=== PATIENT | female | born 1965 | race Hispanic/Latino ===

== ENCOUNTER 2020-08-11 18:00 | Emergency (ER) | payer MEDICARE ==
[~2020-08-11] VITALS: Ht 160 cm; Wt 60.8 kg
[~2020-08-11 18:00] MED LIST: CELECOXIB PO; REMERON PO; [UNRECOGNIZED DRUG - OTHER] PO; [UNRECOGNIZED DRUG - REMARK] PO
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
--- NOTE | 2020-08-11 19:39 | Diagnostic Imaging Report ---
EXAMINATION: Head CT without contrast. HISTORY:History of slip and fall in bathtub, complains of headache. COMPARISON:None. TECHNIQUE: Multidetector axial images were obtained from the foramen magnum to the vertex without contrast. The images were reconstructed using brain and bone algorithms. Thin section brain images were reformatted into coronal and sagittal planes. Dose modulation, iterative reconstruction, and/or weight based adjustment of the mA/kV was utilized to reduce the radiation dose to as low as reasonably achievable. Intravenous contrast: None IMAGE QUALITY: Acceptable. FINDINGS: Skull/scalp: No lytic or blastic. lesions. No surgical changes. Parenchyma: No nonspecific few, scattered supratentorial white matter hypodensity are likely related to small vessel ischemic changes. No acute hemorrhage, mass or acute major vascular territorial infarct. Arteries: No density suggestive of thrombosis. Dural sinuses: No abnormal density suggestive of thrombosis. Ventricles: No hydrocephalus or displacement. Extra-axial spaces: No abnormal density. Brain volume: Normal for age. Craniocervical junction: No mass, Chiari malformation, or basilar invagination. Sella: No mass. Paranasal/mastoid sinuses: Imaged portions unremarkable. IMPRESSION: No acute posttraumatic intracranial abnormality. Signed by: Dr. Elena Pacheco M.D. on 08/11/2020 7:35 PM
--- NOTE | 2020-08-11 19:46 | Diagnostic Imaging Report ---
History: Status post slip and fall in the bathtub. Comparison studies: None Technique: Axial images were obtained through the cervical region.. Coronal and sagittal images reconstructed from the axial data. Dose modulation, iterative reconstruction, and/or weight based adjustment of the mA/kV was utilized to reduce the radiation dose to as low as reasonably achievable. Intravenous contrast: None Findings: Fractures: None. Soft tissue injuries: None. Atlantoaxial articulation: Intact. Alignment: Reversal of normal cervical lordosis may be positional or due to muscle spasm. 2 mm grade 1 anterolisthesis at C3-C4. No scoliosis. Cervicomedullary junction: No abnormalities. The foramen magnum is patent. Soft tissues: No abnormalities. Vertebrae: No fractures, infection or neoplasm. Degenerative changes: C4-C5: Mild right foraminal stenosis due to facet and uncovertebral arthrosis. C5-C6: Moderate degenerative disc disease. Posterior disc osteophyte complex asymmetric to left results in mild canal stenosis. Moderate right and mild left foraminal stenosis due to facet and uncovertebral arthrosis. Incidental finding: A 1.3 cm calcified lesion in right submandibular space may represent sialolith with asymmetric atrophy of right submandibular gland. IMPRESSION: 1. No acute cervical spine fracture or dislocation. Reversal of normal cervical lordosis is either positional or due to muscle spasm. 2. Grade 1 anterolisthesis at C3-C4. 3. Ligament, spinal cord and or vascular abnormalities cannot be excluded on the basis of this examination. 4. Mild cervical spondylosis as detailed above. Signed by: Dr. Elena Pacheco M.D. on 08/11/2020 7:43 PM
[2020-08-11] MEDS ORDERED: ACETAMINOPHEN 325 MG TAB PO STA (20:20)
--- OUTSIDE RECORDS SUMMARY | 2020-08-13 16:25 | XMS REPORT | Continuity of Care Document ---
Author Author [facility] t Organization [facility] Address [address] [place] [address] Phone Unavailable Care Team Providers Care Cutting Supervisor Name Role Phone MD SONG KHAN PCP VANESSA HU Attphys Antonieta Tavarez MD Attphys Payers Payer Name Policy Type Policy Number Effective Date Expiration Date [facility] [id number] [facility] Problems Condition Name Condition Details Condition Category Status Onset Date Resolution Date Last Treatment Date Treating Clinician Comments Source Injury of head Problem Active [facility] Allergies, Adverse Reactions, Alerts Allergy Name Allergy Type Status Severity Reaction(s) Onset Date Inacti ve Date Treating Clinician Comments Source Sulfa (Sulfonamide Antibiotics) Allergy to substance Active Sever e 2020-08-11 00:00:00 [facility] Sulfa (Sulfonamide Antibiotics) DA Active U 2018-08-13 00 :00:00 [facility] Sulfa (Sulfonamide Antibiotics) DA Active U 2016-07-23 00 :00:00 [facility] Social History Social Habit Start Date Stop Date Quantity Comments Source Sex Assigned At 1965 00:00:00 1965 00:00:[address] [facility] Medications Ordered Medication Name Filled Medication Name Start Date Stop Da te Current Medication? Ordering Clinician Indication Dosage Frequency Signature (SIG) Comments Components Source Celebrex Generic Celebrex Generic Yes Daily [facility] Remeron Remeron Yes [address] [facility] Unknown Anxiety Pill Unknown Anxiety Pill Yes [address] [facility] Yes As Nee ded [facility] Vital Signs Vital Name Observation Time Observation Value Comments Source Weight 2020-08-11 18:19:00 134 [lb_av] [facility] BMI (Body Mass Index) 2020-08-11 18:19:00 23.7 kg/m2 [facility] Procedures Procedure Date / Time Performed Performing Clinician Sour e Computed tomography of brain without radiopaque contrast 2020-07 00:00:00 [facility] Computed tomography of cervical spine without contrast 2020-07-19 5 00:00:00 [facility] Plan of Care Planned Activity Planned Date Details Comments Source Instructions Concussion/Head Injury - Adult [facility] Encounters Start Date/Time End Date/Time Encounter Type Admission Type Att[facility] Care Department Encounter ID Source 2019-09-08 08:43:05 Outpatient [id number] [facility] 2020-08-11 18:47:00 2020-08-11 20:42:00 Departed Emergency Room VANESSA HU [facility] [id number] [facility] 2020-08-02 00:00:00 2020-08-02 00:00:00 Telephone Wagner Brewer [facility] [id number] 2020-07-25 00:00:00 2020-07-25 00:00:00 Telephone Wagner Brewer [facility] [id number] 2020-06-14 11:10:11 2020-06-14 12:29:02 Office Visit Wagner Vogt [facility] [id number] 2019-10-26 12:57:00 2019-10-26 12:57:00 Outpatient [id number] [facility] Results Test Description Test Time Test Comments Results Result Comments Source CT CERVICAL SPINE WO 2020-08-11 19:35:00 [facility] [address] [place] [address] Patient Name: FRAN PIZARRO MR #: [id number] : 1965 Age/Sex: 54/F Req #: [id number] Adm Physician: Ordered by: VANESSA HU DO Report #: [id number] Location: ER Room/Bed: Procedure: [id number] CT/CT CERVICAL SPINE WO Exam Date: 08/11/20 Exam Time: 1900 REPORT STATUS: Signed History: Status post slip and fall in the bathtub. Comparison studies: None Technique: Axial images were obtained through the cervical region.. Coronal and sagittal images reconstructed from the axial data. Dose modulation, iterative reconstruction, and/or weight based adjustment of the mA/kV was utilized to reduce the radiation dose to as low as reasonably achievable. Intravenous contrast: None Findings: Fractures: None. Soft tissue injuries: None. Atlantoaxial articulation: Intact. Alignment: Reversal of normal cervical lordosis may be positional or due to muscle spasm. 2 mm grade 1 anterolisthesis at C3-C4. No scoliosis. Cervicomedullary junction: No abnormalities. The foramen magnum is patent. Soft tissues: No abnormalities. Vertebrae: No fractures, infection or neoplasm. Degenerative changes: C4-C5: Mild right foraminal stenosis due to facet and uncovertebral arthrosis. C5-C6: Moderate degenerative disc disease. Posterior disc osteophyte complex asymmetric to left results in mild canal stenosis. Moderate right and mild left foraminal stenosis due to facet and uncovertebral arthrosis. Incidental finding: A 1.3 cm calcified lesion in right submandibular space may represent sialolith with asymmetric atrophy of right submandibular gland. IMPRESSION: 1. No acute cervical spine fracture or dislocation. Reversal of normal cervical lordosis is either positional or due to muscle spasm. 2. Grade 1 anterolisthesis at C3-C4. 3. Ligament, spinal cord and or vascular abnormalities cannot be excluded on the basis of this examination. 4. Mild cervical spondylosis as detailed above. Signed by: Dr. Elena Pacheco M.D. on 08/11/2020 7:43 PM Dictated By: ELENA PACHECO MD 42 Transcribed By: MATT on 08/11/201942 COPY TO: VANESSA HU DO CT BRAIN WO 2020-08-11 19:32:00 [place] [address] Patient Name: FRAN PIZARRO MR #: [id number] : 1965 Age/Sex: 54/F Req #: [id number] Adm Physician: Ordered by: VANESSA HU DO Report #: [id number] Location: ER Room/Bed: Procedure: [id number] CT/CT BRAIN WO Exam Date: 08/11/20 Exam Time: 1900 REPORT STATUS: Signed EXAMINATION: Head CT without contrast. HISTORY:History of slip and fall in bathtub, complains of headache. COMPARISON:None. TECHNIQUE: Multidetector axial images were obtained from the foramen magnum to the vertex without contrast. The images were reconstructed using brain and bone algorithms. Thin section brain images were reformatted into coronal and sagittal planes. Dose modulation, iterative reconstruction, and/or weight based adjustment of the mA/kV was utilized to reduce the radiation dose to as low as reasonably achievable. Intravenous contrast: None IMAGE QUALITY: Acceptable. FINDINGS: Skull/scalp: No lytic or blastic. lesions. No surgical changes. Parenchyma: No nonspecific few, scattered supratentorial white matter hypodensity are likely related to small vessel ischemic changes. No acute hemorrhage, mass or acute major vascular territorial infarct. Arteries: No density suggestive of thrombosis. Dural sinuses: No abnormal density suggestive of thrombosis. Ventricles: No hydrocephalus or displacement. Extra- axial spaces: No abnormal density. Brain volume: Normal for age. Craniocervical junction: No mass, Chiari malformation, or basilar invagination. Sella: No mass. Paranasal/mastoid sinuses: Imaged portions unremarkable. IMPRESSION: No acute posttraumatic intracranial abnormality. Signed by: Dr. Elena Pacheco M.D. on 08/11/2020 7:35 PM Dictated By: ELENA PACHECO MD 34 Transcribed By: MATT on 08/11/201934 COPY TO: VANESSA HU DO
== END 2020-08-11 20:42 | disposition home or self-care (01) ==
LOC: ER 18:47
DX: S00.83XA Contusion of other part of head, initial encounter (principal); W18.30XA Fall on same level, unspecified, initial encounter
CPT/HCPCS: 70450; 72125; 99283

== ENCOUNTER 2020-09-15 14:31 | Emergency (ER) | payer MEDICARE, OTHER ==
[~2020-09-15] VITALS: Ht 160 cm; Wt 60.8 kg
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
== END 2020-09-15 15:05 | disposition home or self-care (01) ==
LOC: ER 14:54
DX: H11.31 Conjunctival hemorrhage, right eye (principal); Z85.42 Personal history of malignant neoplasm of other parts of uterus
CPT/HCPCS: 99282

== ENCOUNTER 2020-10-15 19:34 | Emergency (ER) | payer MEDICARE ==
[~2020-10-15] VITALS: Ht 160 cm; Wt 60.8 kg
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
--- NOTE | 2020-10-15 23:05 | Diagnostic Imaging Report ---
History: Eyelid swelling, blurry vision Comparison studies: None Technique: Axial images were obtained from the skull base to the vertex. Coronal and sagittal reconstructions obtained from the axial data. Dose modulation, iterative reconstruction, and/or weight based adjustment of the mA/kV was utilized to reduce the radiation dose to as low as reasonably achievable. Intravenous contrast: None Findings: Scalp/skull: No abnormalities. No fractures, blastic or lytic lesions. Extra-axial spaces: No masses. No fluid collections. Brain sulci: Appropriate for age. Ventricles: Normal in size and configuration. No hydrocephalus. Parenchyma: Subtle hypodensities in the supratentorial white matter are small vessel ischemic changes. No masses, hemorrhage, acute or chronic cortical vascular insults. Sellar/suprasellar region: No abnormalities Craniocervical junction: Patent foramen magnum. No Chiari one malformation. Incidental findings: None. IMPRESSION: 1. No acute intracranial abnormalities. 2. No changes when compared to the head CT on 08/11/2020. 3. Unchanged minimal microvascular ischemic changes in the supratentorial white matter Signed by: Dr. Hugo Alvarado M.D. on 10/15/2020 11:01 PM
--- NOTE | 2020-10-15 23:26 | Diagnostic Imaging Report ---
History:Left eyelid edema, Comparison studies: None Technique: Axial images were obtained through the maxillofacial region. Coronal and sagittal images reconstructed from the axial data. Dose modulation, iterative reconstruction, and/or weight based adjustment of the mA/kV was utilized to reduce the radiation dose to as low as reasonably achievable. Intravenous contrast: None Findings: Submandibular glands: Two hyperdense calculi (5 and 9-mm) in the proximal segment of the right submandibular duct (series 7, image 48) are associated with a barely visualized atrophic, fatty infiltrated right submandibular gland. There are no abnormalities on the left. Parotic glands: Normal in size and homogeneous. No masses or calcifications. Bones: No fractures or bone abnormalities. Orbits: Globes: Intact Extra or intraconal abnormalities: None. Paranasal sinuses: Clear Degenerative changes in the partially visualized cervical spine: * Slight reversal of the usual cervical lordosis centered at C5. * Minimally degenerated disc at C4-5, moderate at C5-6. * Moderate left spinal canal stenosis at C5-6 due to a disc osteophyte complex. * Mild foraminal stenosis on the right at C4-5 and bilaterally at C5-6 due to facet and uncovertebral arthrosis IMPRESSION: 1. No acute abnormalities. 2. Specifically, no abnormalities in the eyelids or in the orbits. Incidental findings: * Right submandibular calculi associated with a barely visualized, atrophic right submandibular gland. * Degenerative changes in the cervical spine as described Signed by: Dr. Hugo Alvarado M.D. on 10/15/2020 11:22 PM
[2020-10-15] MEDS ORDERED: ACUVAIL 0.45%1 EACH OS (23:38)
[2020-10-16 00:11] VITALS: BP 142/87
== END 2020-10-16 00:14 | disposition home or self-care (01) ==
LOC: ER 21:07
DX: H57.12 Ocular pain, left eye (principal); Z85.42 Personal history of malignant neoplasm of other parts of uterus
CPT/HCPCS: 70450; 70486; 99283